=== PATIENT | female | born 1945 | race Caucasian/White ===

== ENCOUNTER 2017-03-22 16:04 | Emergency (ER) | payer BC, OTHER ==
[~2017-03-22] VITALS: Ht 157.5 cm; Wt 75.2 kg
[2017-03-22 16:59] LABS: ADD MIUA? YES; BILIRUBIN NEGATIVE; BLOOD LARGE; COLOR YELLOW ((YELLOW)); GLUCOSE (STRIP) NEGATIVE; KETONES NEGATIVE; LEUKOCYTES LARGE; NITRITE POSITIVE; PROTEIN (STRIP) 30; SPECIFIC GRAVITY 1.006 (1.000-1.030); UROBILINOGEN 0.2 MG/DL (0.2-1.0)
[2017-03-22 17:06] LABS: BACTERIA RARE /HPF; EPITHELIAL CELLS RARE /HPF; MUCUS NONE SEEN /LPF; WHITE BLOOD CELLS TNTC /HPF (0-5)
[2017-03-22] MEDS ORDERED: KEFLEX500 MG PO (18:20)
[2017-03-22 18:45] VITALS: BP 166/80
== END 2017-03-22 18:45 | disposition home or self-care (01) ==
LOC: EME 16:04
PROVIDERS: Physician Assistant
DX: N39.0 Urinary tract infection, site not specified (principal); Z87.440 Personal history of urinary (tract) infections
CPT/HCPCS: 81003; 87077; 87086; 87186; 99281; 99284